=== PATIENT | male | born 1995 ===

== ENCOUNTER 2020-11-03 18:16 | Day surgery (SDC) | payer BC ==
[~2020-11-03 18:16] MED LIST: Dexamethasone 20 MG/5 ML VIAL ONE; Lidocaine 1% PF 5 ML VIAL ONE; Ondansetron PF 4 MG/2 ML Vial ONE; PROPOFOL 200 MG/20 ML VIAL ONE; Rocuronium Bromide 10 MG/ML (10ML VIAL) ONE; Succinylcholine 200 MG/10 ml SYRINGE FS ONE
[2020-11-03] MEDS ORDERED: Fentanyl 100 MCG/2 ML VIAL ONE (19:14)
[2020-11-03] MEDS ORDERED: Midazolam HCl 2 mg/2 ml Vial ONE (19:38)
[2020-11-03] MEDS ORDERED: EPINEPHrine 1 MG/ML AMP ONE (19:55)
[2020-11-03] MEDS ORDERED: Bupivacaine 0.25% HCL 30 ML VIAL ONE (19:55)
[2020-11-03] MEDS ORDERED: SUGAMMADEX SODIUM 200 MG/2 ML VIAL ONE (20:06)
[2020-11-03] MEDS ORDERED: SUGAMMADEX SODIUM 500 MG/5 ML VIAL ONE (20:11)
== END 2020-11-03 21:35 | disposition home or self-care (01) ==
LOC: SDC 18:16
PROVIDERS: ATTEND Surgery
PROC: 0DTJ4ZZ Resection of Appendix, Percutaneous Endoscopic Approach (ICD-10-PCS; principal; 2020-11-03)
DX: K35.891 Other acute appendicitis without perforation, with gangrene (principal)
CPT/HCPCS: 88304; J0171; J1100; J2250; J2405; J2704; J3010; S0020